=== PATIENT | female | born 1970 | race Two or more races ===

== ENCOUNTER 2019-11-01 17:41 | Inpatient (IN) | payer OTHER ==
[~2019-11-01] VITALS: Ht 160 cm; Wt 61.2 kg
[2019-11-05] MEDS ORDERED: NAPROXEN500 MG PO (08:56)
== END 2019-11-05 10:18 | disposition home or self-care (01) | DRG 742 ==
LOC: ER 17:41 → OB/GYN 21:28
PROVIDERS: ADMIT Obstetrics & Gynecology
PROC: 0UT74ZZ Resection of Bilateral Fallopian Tubes, Percutaneous Endoscopic Approach (ICD-10-PCS; 2019-11-04)
PROC: 0UT24ZZ Resection of Bilateral Ovaries, Percutaneous Endoscopic Approach (ICD-10-PCS; 2019-11-04)
PROC: 0UDB8ZX Extraction of Endometrium, Via Natural or Artificial Opening Endoscopic, Diagnostic (ICD-10-PCS; principal; 2019-11-04 11:45)
DX: N73.9 Female pelvic inflammatory disease, unspecified (principal); N83.521 Torsion of right fallopian tube; N83.292 Other ovarian cyst, left side; N83.291 Other ovarian cyst, right side; M32.9 Systemic lupus erythematosus, unspecified